=== PATIENT | male | born 1940 | race Caucasian/White ===

== ENCOUNTER 2023-10-11 19:40 | Emergency (ER) | payer MEDICARE ==
[~2023-10-11] VITALS: Ht 185.4 cm; Wt 75.6 kg
[2023-10-11 20:08] LABS: BASOPHILS % (AUTO) 0.8 % (0-1); EOSINOPHILS % (AUTO) 0.3 % (0-6); HEMATOCRIT 38.6 % (42.0-52.0); HEMOGLOBIN 13.2 g/dl (14.0-17.9); LYMPHOCYTES # (AUTO) 0.3 X10'3 (1.1-4.8); LYMPHOCYTES % (AUTO) 5.5 % (21-51); MEAN CORPUSCULAR HGB CONC 34.2 g/dL (33.0-36.5); MEAN CORPUSCULAR VOLUME 90.7 FL (78-98); MEAN PLATELET VOLUME 7.5 FL (7.4-10.4); MONOCYTES # (AUTO) 0.7 X10'3 (0-0.9); MONOCYTES % (AUTO) 12.1 % (2-12); NEUTROPHILS # (AUTO) 4.8 X10'3 (1.8-7.7); NEUTROPHILS % (AUTO) 81.3 % (42-75); PLATELET COUNT 119 X10'3 (140-440); RED BLOOD COUNT 4.25 X10'6 (4.70-6.10); RED CELL DISTRIBUTION WIDTH 14.5 % (11.5-14.5); WHITE BLOOD COUNT 5.9 X10'3 (4.5-11.0)
[2023-10-11] MEDS: normal saline 1000ml 1,000 ML IV ONE (20:20)
[2023-10-11] MEDS: acetaminophen 1,000mg/100ml IV 100 ML IV ONE (20:22)
[2023-10-11 20:23] LABS: APTT 25 SECONDS (22-32); INR 1.1 INR; PROTHROMBIN TIME 11.9 SECONDS (9.0-12.0)
[2023-10-11 20:32] LABS: ALANINE AMINOTRANSFERASE 19 U/L (12-78); ALBUMIN 3.8 G/DL (3.4-5.0); ALBUMIN/GLOBULIN RATIO 1.1 (1.1-1.5); ALKALINE PHOSPHATASE 52 IU/L (46-116); ANION GAP 11 (8-16); ASPARTATE AMINO TRANSFERASE 15 U/L (10-37); BILIRUBIN,TOTAL 1.3 MG/DL (0.1-1.0); BLOOD UREA NITROGEN 25 MG/DL (7-18); BUN/CREATININE RATIO 19.2 (10.0-20.0); CHLORIDE 104 MMOL/L (99-107); GLUCOSE 98 MG/DL (70-104); POTASSIUM 3.9 MMOL/L (3.5-5.1); SODIUM 139 MMOL/L (135-145); TOTAL CARBON DIOXIDE 23.8 MMOL/L (24-32); TOTAL PROTEIN 7.2 G/DL (6.4-8.2); eCRCL 46 ML/MIN; eGFR 53 ML/MIN
[2023-10-11 20:40] LABS: MAGNESIUM 1.9 MG/DL (1.5-2.4); PRO BRAIN NATRIURETIC PEPTIDE 2174 PG/ML (0-450)
[2023-10-11] MEDS ORDERED: UNABLE TO OBTAIN (20:44)
[2023-10-11] MEDS ORDERED: NIRM1TAB9 PO (21:51)
[2023-10-11 21:53] VITALS: BP 160/73; PULSE 70; RESP 19; O2SAT 95
[2023-10-11] MEDS: ibuprofen tablet 400 MG TABLET PO ONE (21:59)
[2023-10-11 22:02] VITALS: TEMP 98.5
== END 2023-10-11 22:45 | disposition home or self-care (01) ==
LOC: ER 19:42
DX: U07.1 COVID-19 (principal)
CPT/HCPCS: 36415; 71045; 80053; 83605; 83735; 83880; 84145; 84484; 85025; 85610; 85730; 87040; 87811; 93005; 96374; 99285; J0131; J7030; 81003